=== PATIENT | male | born 1980 | race African-American/Black ===

== ENCOUNTER 2018-12-11 11:45 | Emergency (ER) | payer OTHER ==
[~2018-12-11] VITALS: Ht 162.6 cm; Wt 81.7 kg
[2018-12-11] MEDS ORDERED: IBUPROFEN 600600 M1 PO (13:39)
[2018-12-11 13:43] VITALS: BP 131/88
== END 2018-12-11 13:43 | disposition home or self-care (01) ==
LOC: ER 11:45
DX: S61.411A Laceration without foreign body of right hand, initial encounter (principal); W26.8XXA Contact with other sharp object(s), not elsewhere classified, initial encounter; Y92.89 Other specified places as the place of occurrence of the external cause; Y93.89 Activity, other specified; Y99.8 Other external cause status